=== PATIENT | male | born 2000 ===

== ENCOUNTER 2021-10-01 17:58 | Inpatient (IN) ==
[2021-10-01] MEDS ORDERED: Lactated Ringers 1000 ml BAG 1,000 ML IV ONE ×2 (18:49→20:05)
[2021-10-01] MEDS ORDERED: Metoclopramide 5 MG/ML VIAL (10 mg) IV SLOW PU ONE (18:49)
[2021-10-01] MEDS ORDERED: Pantoprazole VIAL 40 MG VIAL IV ONE (18:49)
[2021-10-01 19:49] LABS: ABS Lymphocytes 0.9 10^3/ul (1.0-4.8); ABS Monocytes 0.4 10^3/ul (0-0.8); ABS Neutrophils 5.8 10^3/ul (1.5-7.7); Eosinophil % 0.1 %; Hematocrit 52 % (42-52); Hemoglobin 17.8 g/dL (14.0-18.0); Lymphocyte % 12.3 %; Mean Corpuscular HGB Conc 34 g/dL (31-36); Mean Corpuscular Hemoglobin 32 pg (27-31); Mean Corpuscular Volume 94 fL (80-94); Mean Platelet Volume 8.8 fL (7.4-10.4); Nucleated Red Blood Cells % 0.1; Platelet Count 272 10^3/uL (150-450); Red Blood Count 5.58 10^6 /uL (4.18-5.48); Red Cell Distribution Width 14 % (10-15); White Blood Count 7.1 10^3/uL (3.5-10.8)
[2021-10-01 19:55] LABS: INR 1.14 (0.86-1.15)
[2021-10-01 20:40] LABS: ALT 261 U/L (7-52); AST 155 U/L (13-39); Albumin 5.6 g/dL (3.2-5.2); Albumin/Globulin Ratio 1.5 (1-3); Alcohol, S < 13 mg/dL (<13); Alkaline Phosphatase 107 U/L (35-149); Blood Urea Nitrogen 13 mg/dL (6-24); C Reactive Protein 7.17 mg/L (<8.01); Calcium 10.1 mg/dL (8.6-10.3); Chloride 99 mmol/L (101-111); Globulin 3.7 g/dL (2-4); Glucose 376 mg/dL (70-100); Lipase 27 U/L (11.0-82.0); Magnesium 1.9 mg/dL (1.9-2.7); Potassium 4.7 mmol/L (3.5-5.0); Sodium 131 mmol/L (135-145); Total Protein 9.3 g/dL (6.4-8.9); eGFR CKD-EPI 79.2 (>60)
[2021-10-01 20:47] LABS: Anion Gap 23 mmol/L (2-11); CO2 Carbon Dioxide 9 mmol/L (22-32)
[2021-10-01] MEDS ORDERED: Dextrose 50% Syringe 50 ml 25 GM/50 ML SYRINGE IV PUSH PRN (21:00)
[2021-10-01] MEDS ORDERED: Insulin Infusion 100unit/100mL 100 UNIT/100 ML BAG IV SCH ×2 (21:00→23:00)
[2021-10-01] MEDS ORDERED: NORMOSOL-R pH 7.4 1000 mL BAG 1,000 ML IV SCH (22:00)
[2021-10-01 22:07] LABS: Venous Bicarbonate HCO3 10.3 mmol/L (24-28)
[2021-10-01 22:25] LABS: Urine Appearance Clear; Urine Bilirubin Negative (Negative); Urine Blood 1+ (Negative); Urine Color Yellow; Urine Glucose 3+(>=500 mg/dL) (Negative); Urine Ketones 2+ (Negative); Urine Nitrite Negative (Negative); Urine Protein 2+(100 mg/dL) (Negative); Urine Specific Gravity 1.024 (1.002-1.030); Urine Urobilinogen Negative (Negative)
[2021-10-01 22:29] LABS: Urine Bacteria Absent (Absent); Urine Red Blood Cell Trace(0-2/hpf) (Absent); Urine Squamous Epithelial Cell Present (Absent); Urine White Blood Cell Absent (Absent)
[2021-10-01 22:51] LABS: Phosphorus 2.9 mg/dL (2.5-5.0)
[2021-10-02] MEDS: Insulin Infusion 100unit/100mL 100 UNIT/100 ML BAG IV SCH ×3 (00:20→06:10)
[2021-10-02] MEDS ORDERED: Insulin Infusion 100unit/100mL 100 UNIT/100 ML BAG IV SCH (00:45)
[2021-10-02] MEDS ORDERED: D5W 1/2 NS 1000 ml BAG 1,000 ML IV SCH ×3 (01:00→11:00)
[2021-10-02 01:06] LABS: Osmolality Serum 310 mOsm/kg (275-295)
[2021-10-02 01:15] LABS: Cholesterol 392 mg/dL; HDL Cholesterol 39.2 mg/dL; LDL Cholesterol 313 mg/dL; Triglycerides 197 mg/dL
[2021-10-02 01:25] LABS: Calcium 9.5 mg/dL (8.6-10.3); Potassium 3.6 mmol/L (3.5-5.0); eGFR CKD-EPI 91.7 (>60)
[2021-10-02] MEDS: KCL 20 MEQ/100 ML IVPREMIX 20 MEQ/100 ML BAG IV SCH ×4 (02:27→22:47)
[2021-10-02] MEDS ORDERED: Sodium Chloride CONC. 4 MEQ/ML 77 MEQ in D10W 1000 ml BAG 1,000 ML IV SCH ×2 (04:00→06:00)
[2021-10-02 04:22] LABS: ABS Lymphocytes 1.3 10^3/ul (1.0-4.8); ABS Monocytes 0.6 10^3/ul (0-0.8); Eosinophil % 0.1 %; Hematocrit 48 % (42-52); Hemoglobin 16.1 g/dL (14.0-18.0); Lymphocyte % 18.8 %; Mean Corpuscular HGB Conc 34 g/dL (31-36); Mean Corpuscular Hemoglobin 31 pg (27-31); Mean Corpuscular Volume 92 fL (80-94); Mean Platelet Volume 8.5 fL (7.4-10.4); Nucleated Red Blood Cells % 0.1; Platelet Count 246 10^3/uL (150-450); Red Blood Count 5.19 10^6 /uL (4.18-5.48); Red Cell Distribution Width 14 % (10-15)
[2021-10-02 04:47] LABS: Calcium 9.6 mg/dL (8.6-10.3); Potassium 3.7 mmol/L (3.5-5.0); eGFR CKD-EPI 94.7 (>60)
[2021-10-02] MEDS: Pantoprazole VIAL 40 MG VIAL IV SCH (07:12)
[2021-10-02] MEDS ORDERED: Prochlorperazine 5 mg/ml 2 ml VIAL (10 mg) IV PRN (08:10)
[2021-10-02] MEDS ORDERED: Ondansetron 4 mg VIAL 2 MG/ML 2 ml VIAL IV PRN (08:11)
[2021-10-02] MEDS ORDERED: Perflutren Lipid Microsphere 3 ML VIAL ONE (08:11)
[2021-10-02] MEDS ORDERED: Prochlorperazine 5 mg/ml 2 ml VIAL (10 mg) ONE (08:13)
[2021-10-02 08:21] LABS: Calcium 9.3 mg/dL (8.6-10.3); eGFR CKD-EPI 104.7 (>60)
[2021-10-02 09:02] LABS: Potassium 5.3 mmol/L (3.5-5.0)
[2021-10-02] MEDS ORDERED: NS 0.45% 1000 ml BAG 1,000 ML IV SCH (10:00)
[2021-10-02 13:59] LABS: Calcium 9.5 mg/dL (8.6-10.3); Potassium 3.8 mmol/L (3.5-5.0); eGFR CKD-EPI 112.5 (>60)
[2021-10-02] MEDS ORDERED: Insulin GLARGINE 100 un/ml 10 ml VIAL SUBCUT ONE (15:19)
[2021-10-02 17:01] LABS: Calcium 9.1 mg/dL (8.6-10.3); Potassium 3.8 mmol/L (3.5-5.0); eGFR CKD-EPI 119.9 (>60)
[2021-10-02] MEDS: Insulin GLARGINE 100 un/ml 10 ml VIAL SUBCUT SCH (20:54)
[2021-10-02 21:03] LABS: Potassium 3.3 mmol/L (3.5-5.0); eGFR CKD-EPI 125.7 (>60)
[2021-10-02 21:58] LABS: Calcium 7.9 mg/dL (8.6-10.3)
[2021-10-02] MEDS ORDERED: Potassium Chlor 20 meq TAB.ER PO ONE (22:27)
[2021-10-03] MEDS: KCL 20 MEQ/100 ML IVPREMIX 20 MEQ/100 ML BAG IV SCH (00:53)
[2021-10-03 02:43] LABS: Calcium 8.7 mg/dL (8.6-10.3); Potassium 4.1 mmol/L (3.5-5.0); eGFR CKD-EPI 126.1 (>60)
[2021-10-03 05:58] LABS: ABS Eosinophils 0.1 10^3/ul (0-0.6); ABS Lymphocytes 1.3 10^3/ul (1.0-4.8); ABS Monocytes 0.3 10^3/ul (0-0.8); ABS Neutrophils 2.9 10^3/ul (1.5-7.7); Eosinophil % 1.6 %; Hematocrit 44 % (42-52); Hemoglobin 15.2 g/dL (14.0-18.0); Lymphocyte % 28.3 %; Mean Corpuscular HGB Conc 34 g/dL (31-36); Mean Corpuscular Hemoglobin 31 pg (27-31); Mean Corpuscular Volume 91 fL (80-94); Mean Platelet Volume 8.5 fL (7.4-10.4); Platelet Count 218 10^3/uL (150-450); Red Blood Count 4.87 10^6 /uL (4.18-5.48); Red Cell Distribution Width 14 % (10-15); White Blood Count 4.6 10^3/uL (3.5-10.8)
[2021-10-03 06:24] LABS: Albumin 4.4 g/dL (3.2-5.2); Albumin/Globulin Ratio 1.5 (1-3); Calcium 8.9 mg/dL (8.6-10.3); Globulin 2.9 g/dL (2-4); Potassium 3.9 mmol/L (3.5-5.0); Total Protein 7.3 g/dL (6.4-8.9); eGFR CKD-EPI 125.7 (>60)
[2021-10-03] MEDS: Pantoprazole VIAL 40 MG VIAL IV SCH (07:26)
[2021-10-03] MEDS ORDERED: Potassium Chlor 20 meq TAB.ER PO ONE (08:12)
[2021-10-03 11:33] LABS: Hepatitis B Surface Antigen Nonreactive (Nonreactive)
[2021-10-03 11:38] LABS: Hepatitis A Ab IgM Negative (Negative)
[2021-10-03 11:39] LABS: Hepatitis B Core IgM Nonreactive (Nonreactive)
[2021-10-03 11:50] LABS: Hepatitis C Antibody Negative (Negative)
[2021-10-03] MEDS: Insulin GLARGINE 100 un/ml 10 ml VIAL SUBCUT SCH (21:22)
[2021-10-04 06:29] LABS: Albumin 4.1 g/dL (3.2-5.2); Albumin/Globulin Ratio 1.5 (1-3); Calcium 8.8 mg/dL (8.6-10.3); Globulin 2.7 g/dL (2-4); Magnesium 1.8 mg/dL (1.9-2.7); Potassium 3.8 mmol/L (3.5-5.0); Total Bilirubin 0.7 mg/dL (0.2-1.0); Total Protein 6.8 g/dL (6.4-8.9); eGFR CKD-EPI 129.5 (>60)
[2021-10-04] MEDS ORDERED: Magnesium Sulfate IV 3 GM in NS 0.9% 100 ml BAG 100 ML IVPB ONE (07:16)
[2021-10-04] MEDS ORDERED: Magnesium Sulfate 2 GM IV (Premix) IVPB ONE (08:00)
[2021-10-04] MEDS ORDERED: Magnesium Sulfate 1 GM IV 1 GM/100 ML BAG IV ONE (09:00)
[2021-10-04 09:01] LABS: ABS Eosinophils 0.1 10^3/ul (0-0.6); ABS Lymphocytes 1.4 10^3/ul (1.0-4.8); ABS Monocytes 0.4 10^3/ul (0-0.8); ABS Neutrophils 2.4 10^3/ul (1.5-7.7); Hematocrit 42 % (42-52); Hemoglobin 14.2 g/dL (14.0-18.0); Lymphocyte % 32.1 %; Mean Corpuscular HGB Conc 34 g/dL (31-36); Mean Corpuscular Hemoglobin 32 pg (27-31); Mean Corpuscular Volume 92 fL (80-94); Mean Platelet Volume 9.6 fL (7.4-10.4); Nucleated Red Blood Cells % 0.1; Platelet Count 207 10^3/uL (150-450); Red Cell Distribution Width 14 % (10-15); White Blood Count 4.3 10^3/uL (3.5-10.8)
[2021-10-04] MEDS: Pantoprazole VIAL 40 MG VIAL IV SCH (09:10)
[2021-10-04 10:55] LABS: Ferritin 1276.1 ng/mL (24-336)
[2021-10-04] MEDS ORDERED: Polyethylene Glycol 3350 17 GM PACKET PO ONE (16:12)
[2021-10-04] MEDS ORDERED: Senna TAB 8.6 mg TAB PO ONE (19:37)
[2021-10-04] MEDS ORDERED: Magnesium Hydroxide LIQ 30 ML UDC PO PRN (19:37)
[2021-10-04] MEDS ORDERED: Insulin GLARGINE 100 un/ml 10 ml VIAL SUBCUT SCH (21:00)
[2021-10-05 08:16] LABS: Calcium 8.7 mg/dL (8.6-10.3); Magnesium 1.7 mg/dL (1.9-2.7); Potassium 3.6 mmol/L (3.5-5.0); eGFR CKD-EPI 136.4 (>60)
[2021-10-05] MEDS: Pantoprazole VIAL 40 MG VIAL IV SCH (09:12)
[2021-10-05] MEDS ORDERED: Magnesium Sulfate IV 3 GM in NS 0.9% 100 ml BAG 100 ML IVPB ONE (10:31)
[2021-10-05] MEDS ORDERED: Magnesium Sulfate 2 GM IV (Premix) IVPB ONE (11:00)
[2021-10-05] MEDS ORDERED: Magnesium Sulfate 1 GM IV 1 GM/100 ML BAG IV ONE (12:00)
[2021-10-05 14:35] VITALS: BP 139/79
== END 2021-10-05 17:00 | disposition home or self-care (01) | DRG 420 ==
LOC: ED 17:58 → SUATTDRO 21:30 → EDHOLD 21:30 → ICU 23:38 → MED 10-03 17:07
PROVIDERS: ADMIT Internal Medicine Critical Care Medicine; ATTEND Internal Medicine